=== PATIENT | male | born 1945 | race Caucasian/White ===

== ENCOUNTER → 2019-01-03 09:11 | Outpatient (CLI) | payer MEDICARE, OTHER, SELFPAY ==
--- NOTE | 2019-01-03 | ASPOS_PTH ---
PATIENT: SKY RICKS LOC: [facility] U#:[id number] AGE/SX: 80/M ROOM: RE01/03/[address]: Dr. Armond Martino MD : 1945 BED: DIS: SPEC #: [id number] RECD: 01/03/19 13:06 STATUS: SARA ARELY #: [id number] MOMO: 01/03/19 00:[address]: Armond Martino DEPT: CYTOLOGY RECD BY: Edvin Frank ENTERED: 01/03/19 13:07 SP TYPE: ASP HERE OTHR DR: Dr. Jeet Lugo MD Tissues: A - Neck, NOS B - Neck, NOS Procedures: Surgery Specimen Level IV Cytology Other Fine Needle Asp on Site HEADER OPERATION: FNA submental mass and right neck mass PRE-OP DIAGNOSIS: Submental mass and right neck mass TISSUE SUBMITTED: A - Submental mass FNA - smears and fluid for cell block, B - Right neck mass FNA - smears and fluid for cell block DIAGNOSIS CYTOLOGY A. Fine needle aspiration, submental mass (smears and cell block): Atypical cells are present. See comment. B. Fine needle aspiration, right neck mass (smears and cell block): Negative for malignant cells. See comment. AM:ethan 01/05/19 COMMENT The specimen is evaluated at the time of FNA by Dr. Cm. Immediate Evaluation: A. Negative for malignant cells. B. Negative for malignant cells. A. Atypical degenerating cells are identified in the specimen. A malignancy cannot be entirely excluded. Incisional/excisional biopsy is recommended if clinically indicated. B. The nodule is deep to subcutaneous tissue. The needle aspiration may not represent complete sampling of nodule/lymph node. Clinical correlation is suggested. Immunohistochemistry ([id number]) supports the above diagnosis. This case was reviewed and diagnosis discussed with Dr. Jocelyne Martino on 01/11/19. Case has been reviewed in consultation with Dr. Lara who concurs with the above diagnosis. IDC:SJ CYTOLOGY STUDY Slides are reviewed. CYTOLOGY GROSS A - Received is 0.2 ml of reddish fluid labeled with the patient's name, and designated submental mass. Five imprints and three paps are made from the submitted fluid and the rest is added to CytoLyt for cell block preparation. Submitted for cytology study. B - Received is 0.2 ml of reddish fluid labeled with the patient's name, and designated right neck mass. Four imprints and three paps are made from the submitted fluid and the rest is added to CytoLyt for cell block preparation. Submitted for cytology study. / AM:ethan 01/03/19 TC:? CPT: 03346, 25509 x2, 72859 x2, 80544 x2
--- NOTE | 2019-01-03 | IMM_PTH ---
PATIENT: SKY RICKS LOC: [facility] U#:[id number] AGE/SX: 80/M ROOM: RE01/03/[address]: Dr. Armond Martino MD : 1945 BED: DIS: SPEC #: [id number] RECD: 01/04/19 11:53 STATUS: SARA REShiloh #: [id number] MOMO: 01/03/19 00:[address]: Armond Martino DEPT: IMMUNOHISTOCHEMISTRY RECD BY: Estephania Adikns ENTERED: 01/04/19 11:58 SP TYPE: IMMUNO OTHR DR: Dr. Jeet Lugo MD Tissues: A - Neck, NOS Procedures: BCL-2 (add) CD20 (add) CD79A (add) KI-67 (add) Pankeratin (add) CD45 (initial) PHYSICIAN & INSTITUTION [place] [id number] SPECIMEN INFORMATION: Tissue Source: A - Submental mass, FNA Clinical Info: Submental mass and right neck mass Specimen Number: [id number] CPT code: 42119, 42698 x5 METHODOLOGY: Deparaffinized sections of prefer/formalin-fixed tissue or PAP/DQ stained slides are incubated with monoclonal/polyclonal antibodies/oligonucleotide probes. Localization is made via biotin free immunoperoxidase method. Appropriate controls are performed and reacted as expected. Results on target cell population are indicated in the following table: RESULTS: ANTIBODY / CLONE RESULT Block A CD45 (RP2/18) positive CD79a (11E3) positive, focal BCL-2 (bcl-2/100/D5) positive, rare CD20 (L26) positive, rare Ki-67 (30-9) negative AE1-3 (AE1/AE3/PCK26) negative These tests were developed and their performance characteristics determined by [facility]. They may not have been cleared or approved by the U.S. Food and Drug Administration. The FDA has determined that such clearance or approval is not necessary. INTERPRETATION: A. Submental mass, fine needle aspiration: Atypical degenerating cells present. AM:ethan 01/05/19 Comment: A milgnant neoplasm cannot be ruled out. Clinical correlation is suggested. Case has been reviewed in consultation with Dr. Lara who concurs with the above diagnosis. IDC:[email or web address]
== END ==
PROVIDERS: Family Provider Internal Medicine; PCP Internal Medicine; Referring Provider Otolaryngology; Visit Provider Otolaryngology
DX: R22.1 Localized swelling, mass and lump, neck (principal); R22.0 Localized swelling, mass and lump, head
CPT/HCPCS: 10021; 88161; 88305; 88341; 88342

== ENCOUNTER → 2019-02-07 14:26 | Outpatient (CLI) | payer MEDICARE, OTHER, SELFPAY | PROVIDERS: Family Provider Internal Medicine; PCP Internal Medicine; Referring Provider Otolaryngology; Visit Provider Otolaryngology | DX: Z01.818 Encounter for other preprocedural examination (principal) ==

== ENCOUNTER → 2019-02-14 07:55 | Outpatient (CLI) | payer MEDICARE, OTHER, SELFPAY ==
--- NOTE | 2019-02-14 08:01 | CT_ITS ---
STUDY: CT SOFT TISSUE NECK WITH CONTRAST REASON FOR EXAM: Male, 73 years old. Right-sided neck swelling, midline under the jaw radiating down the right side of the neck. RADIATION DOSAGE (If Supplied By Facility): CTDIvol = ( 21.70 ) mGy, DLP = ( 634.04 ) mGycm TECHNIQUE: The patient was scanned in a multi-detector CT scanner. High resolution transaxial imaging was performed following intravenous administration of 75CC IV Isovue 300. Sagittal and coronal images were reconstructed. Individualized dose optimization techniques were used for this CT. COMPARISON: None. FINDINGS: Superior mediastinum: A few lymph nodes, prevascular chain, the largest with a short axis dimension of 9 mm. A few tiny lymph nodes in the paratracheal superior mediastinum. A single mildly enlarged lymph node right paratracheal at the level of the thoracic inlet, short axis IX.1 mm. Apical lungs: Clear. Apical thoracic body wall soft tissues and osseous structures: No acute process. Cervical spine: Mild spondylosis without stenosis. Craniofacial osseous structures: No acute process. Mastoid air cells and middle ear cavities: Clear. Paranasal sinuses: Mucous retention cyst at the base of the right maxillary sinus with mucoperiosteal thickening. Pharyngeal and laryngeal soft tissues: No acute process. Thyroid, submandibular glands and parotid glands: No acute process. Internal Sales Engineer space: No acute process. Supraclavicular and cervical soft tissues: On the right, numerous shotty cervical chain lymph nodes. A few are abnormally enlarged, posterior cervical 10 x 13 mm. Submandibular 12 x 9 mm. A right-sided submental lymph node measuring 8 mm is centrally hypoattenuating with rim enhancement, consistent with acute inflammation. A midline submental lymph node measures 10 mm. There are multiple small supraclavicular lymph nodes. On the left, more prominent supraclavicular lymphadenopathy. Largest lymph node the level of the thyroid about 13 mm. Posterior to the sternocleidomastoid muscle, matted accumulation of closely approximate lymph nodes, several of which are centrally low density, the largest measuring 21 mm, immediately adjacent lymph nodes measuring 16mm, 16 mm, 14 mm, 15 mm. Left submandibular lymph nodes 6 mm, 10 mm. Left anterior cervical lymph nodes 17 mm, 14 mm. Left jugulodigastric lymph node 14 mm. A few additional very small shotty cervical lymph nodes, none in the posterior cervical chain. CT/Soft Tissue Neck WITH Contrast IMPRESSION: Lymphadenopathy, bilateral cervical, supraclavicular, most severe on the left. Multiple enlarged lymph nodes are centrally low density with rim enhancement, suggesting central necrosis, active inflammation. Chronic paranasal sinus disease. Electronically Signed: Kee Granado MD at 10:20 EDT Tel , Service support ,
[2019-02-14 08:30] LABS: CREATININE FINGERSTICK 1.1 mg/dL (0.70-1.30); EGFR FINGERSTICK > 60.0000 mL/min (>60)
== END ==
PROVIDERS: Family Provider Internal Medicine; PCP Internal Medicine; Referring Provider Otolaryngology; Visit Provider Otolaryngology
DX: R22.1 Localized swelling, mass and lump, neck (principal)
CPT/HCPCS: 70491; Q9967

== ENCOUNTER 2019-03-14 13:57 | Day surgery (SDC) | payer MEDICARE, OTHER, SELFPAY ==
--- NOTE | 2019-03-09 16:31 | EKG12_ITS ---
Test Reason : PRE OP Blood Pressure : / mmHG Vent. Rate : 055 BPM Atrial Rate : 055 BPM P-R Int : 188 ms QRS Dur : 090 ms QT Int : 432 ms P-R-T Axes : 045 027 049 degrees QTc Int : 413 ms Sinus bradycardia with marked sinus arrhythmia Otherwise normal ECG Confirmed by VENKATESH LLAMAS, OSWALDO ([id number]), managing editor NADIRA RICKS ([id number]) on 03/14/2019 3:02:47 PM Referred By: Armond Martino Confirmed By:OSWALDO RIDDLE MD
[2019-03-09 17:45] LABS: Absolute Lymphocyte Count 1.28 X10^3/ul (0.83-4.51); Basophil# 0.06 X10^3/uL; Eosinophil# 0.43 X10^3/uL; Eosinophils% 6.9 % (0-5); Hematocrit 38.5 % (40-54); Hemoglobin 12.5 g/dl (13.0-16.5); Lymphocyte # 1.28 X10^3/ul (4.0); Lymphocyte % 20.5 % (19-41); Mean Corp Hgb Conc 32.5 g/gl (32-36); Mean Corpuscular Hgb 25.1 pg (27.0-32.0); Mean Corpuscular Volume 77.3 fL (80-94); Mean Platelet Vol. 11.3 fl (6.2-12.0); Monocyte# 0.49 X10^3/uL; Monocyte% 7.8 % (0-10); Neutrophil # 3.98 X10^3/uL (2.7-7.7); Neutrophil % 63.6 % (47-70); Platelet Count 218 K/mm3 (150-450); RBC Distribution Width CV 15.2 % (11.6-14.6); RBC Distribution Width SD 42.3 fl (35.1-43.9); Red Blood Count 4.98 M/mm3 (4.6-6.2); White Blood Count 6.3 K/mm3 (4.4-11.0)
[2019-03-09 17:57] LABS: POSITIVE COUNT NO; POSITIVE DIFFERENTIAL NO; POSITIVE MORPHOLOGY NO
[2019-03-09 18:18] LABS: Anion Gap 6 (5-15); BUN 38 mg/dL (7-18); BUN/Creat Ratio 31.4 RATIO (10-20); Calcium,Total 9.1 mg/dL (8.5-10.1); Chloride 108 mmol/L (98-107); Creatinine, Serum 1.21 mg/dL (0.70-1.30); EST Glomerular Filtration Rate 63 mL/min (>60); Est Glom Filt Rate - Afr Amer 76 mL/min (>60); Glucose 94 mg/dL (74-106); Potassium 4.4 mmol/L (3.5-5.1); Sodium Level 143 mmol/L (136-145)
[2019-03-14] VITALS (7 sets, daily range): BP systolic 142–153; BP diastolic 66–77; PULSE 63–68; RESP 14–18; TEMP 36.7–37; O2SAT 93–98; BMI 30.5
--- NOTE | 2019-03-14 | IMM_PTH ---
PAT[place]: SKY [place]ICKS [place] [facility] [id number] AGE/SX: 73/M ROOM: RE03/14/[address]: Dr. Armond Martino MD : 1945 BED: DIS: 03/14/2019 SPEC #: [id number] RECD: 03/16/19 14:02 STATUS: SARA REShiloh #: [id number] MOMO: 03/14/19 00:[address]: Armond Martino DEPT: IMMUNOHISTOCHEMISTRY RECD BY: Estephania Adkins ENTERED: 03/16/19 14:05 SP TYPE: IMMUNO OTHR DR: Dr. Jeet Lugo MD Tissues: Lymph node of neck, NOS Procedures: BCL-2 (add) BCL-6 (add) CD10 (add) CD138 (add) CD15 (add) CD20 (add) CD23 (add) CD3 (add) CD30 (add) CD43 (add) CD45 (add) CD5 (add) CD79A (add) CYCLIN (add) KAPPA (add) KI-67 (add) LAMBDA (add) Vimentin (add) MUM1 (add) C-MYC (add) Pankeratin (initial) PHYSICIAN & [place] [id number] SPECIMEN INFORMATION: Tissue Source: Lymph node left neck Clinical Info: Mass left neck Specimen Number: [id number] CPT code: 26280, 72915 x20 METHODOLOGY: Deparaffinized sections of prefer/formalin-fixed tissue or PAP/DQ stained slides are incubated with monoclonal/polyclonal antibodies/oligonucleotide probes. Localization is made via biotin free immunoperoxidase method. Appropriate controls are performed and reacted as expected. Results on target cell population are indicated in the following table: RESULTS: ANTIBODY / CLONE RESULT AE1-3 (AE1/AE3/PCK26) negative CD3 (PS1) positive CD5 (SP10) negative CD10 (56C6) positive CD15 (MMA) negative CD20 (L26) positive CD23 (1B12) negative CD30 (James-H2) negative CD43 (L60) positive CD45 (RP2/18) positive CD79a (11E3) positive CD138 (B-A38) negative BCL-2 (bcl-2/100/D5) positive BCL-6 (VM720P/A8) positive Cyclin D1/BCL-1 (SP4) negative MUM1 (MRQ-43) positive C-MYC (Y69) negative [place] (polyclonal) negative Lambda (polyclonal) negative Vimentin (V9) positive Ki-67 (30-9) positive, moderate These tests were developed and their performance characteristics determined by [facility]. They may not have been cleared or approved by the U.S. Food and Drug Administration. The FDA has determined that such clearance or approval is not necessary. INTERPRETATION: Lymph node left neck, excision: Large B-cell lymphoma. AM:ethan 03/22/19 Comment: A germinal center origin is not favored. Case has been reviewed in consultation with Dr. Lara who concurs with the above diagnosis. IDC:SJ
[2019-03-14 15:05] LABS: Bedside Glucose 148 mg/dL (70-110)
--- NOTE | 2019-03-14 16:05 | LYMN_PTH ---
PATIENT: SKY RICKS [place] [facility] [place][id number] AGE/SX: 73/M ROOM: RE03/14/[address]: Dr. Armond Martino MD : 1945 BED: DIS: 03/14/2019 SPEC #: [id number] RECD: 03/14/19 17:28 STATUS: SARA ARELY #: [id number] MOMO: 03/14/19 16:[address]: Armond Martino DEPT: SURGICAL PATHOLOGY RECD BY: Arnaldo Garcia ENTERED: 03/15/19 09:26 SP TYPE: LYMPH NODE OTHR DR: Dr. Jeet Lugo MD Tissues: LYMPH NODE BIOPSY Procedures: Surgery Specimen Level IV HEADER OPERATION: Excision, neck mass, left PRE-OP DIAGNOSIS: Mass left neck TISSUE SUBMITTED: Lymph node left neck MICROSCOPIC DIAGNOSIS Mass of left neck, excisional biopsy: Large B-cell lymphoma. See comment. AM:ethan 03/22/19 COMMENT Flow cytometry analysis reveals a CD10 positive clonal B-cell population. The complete flow cytometry report is viewable in patient's EMR. Immunohistochemistry ([id number]) supports the above diagnosis. MUM1 positivity does not favor a germinal center origin. Clinical correlation is suggested. Reference is made to the patient's fine needle aspiration ([id number]) in which atypical cells was identified. Case has been reviewed in consultation with Dr. Lara who concurs with the above diagnosis. IDC:SJ MICROSCOPIC DESCRIPTION Slides are reviewed. GROSS DESCRIPTION Received in fixative is one container labeled with the patient's name and designated lymph node left neck. The specimen consists of multiple irregular fragments of pink-gomes soft tissue that in aggregate measure 3 x 2.5 x 0.2 cm. 8Th Grade Teacher portions are submitted for flow cytometry analysis. 8Th Grade Teacher touch preps are prepared. The remainder of the specimen is submitted in its entirety in one cassette. / AM:ethan 03/15/19 TC:0 CPT: 03423 ADDENDUM ADDENDUM ADDENDUM ADDENDUM ADDENDUM ADDENDUM ADDENDUM ADDENDUM ADDENDUM ADDENDUM ADDENDUM 05/30/2019 09:49 ADDENDUM 05/30/2019 09:49 ADDENDUM 05/30/2019 09:49 ADDENDUM 05/30/2019 09:49 ADDENDUM 05/30/2019 09:49 This addendum is added to incorporate an outside pathology consultation report. The case was examined at [facility] (#[id number]) and the following diagnosis was rendered. Mass, left neck, excisional biopsy: Diffuse large B-cell lymphoma, not otherwise specified (40%). 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 Please see complete above mentioned consultation report in EMR
[2019-03-14] MEDS: Bacitracin 500 UNITS/GM PACKET (17:14)
--- NOTE | 2019-03-14 17:45 | DCINST_ITS ---
You will use the following diet at home:: Regular Discharge Activity: Return to Normal Activity, No Restrictions Additional Activity Instructions:: Leave dressing in place. Call [phone] to make an appointment to be seen tomorrow afternoon. Dr. Martino will remove the dressing tomorrow. Allergies/Adverse Reactions: Allergies No Known Allergies Allergy (Verified 03/09/19 14:15) Medications to take at Discharge Atenolol [Tenormin (beta Mathew)] 25 mg PO DAILY 02/07/19 Glipizide [Glipizide Xl] 5 mg PO DAILY 02/07/19 NIFEdipine [Procardia XL] 90 mg PO DAILY 02/07/19 RX: Aspirin E.C. [Ecotrin] 81 mg PO DAILY@0800 02/07/19 Terazosin HCl [Hytrin] 5 mg PO DAILY 02/07/19 Multivitamin with Minerals [Multiple Vitamin] 1 each PO DAILY 03/09/19 Primary Care Physician: Jeet Lugo MD [Primary Care Provider] - Test Results: Test results from this visit will be discussed in further detail at your follow- up appointment, if applicable.
--- NOTE | 2019-03-14 17:45 | PCM.OPRPT ---
Report of Operation Date of Procedure: 03/14/19 Pre-Operative Diagnosis: Left neck mass Post-Operative Diagnosis: same Surgery/Procedure Performed:: Excision left neck mass Description of Surgical Findings:: Lymph node with pus Type of Anesthesia:: General Anesthesiologist: Sascha Melvin Specimen's removed: neck mass Drains: salbador Estimated Blood Loss (mL): minimal Description of Procedure: The patient was taken to the OR on 03/14/19. He was placed in the supine position on the OR table. He was given sufficient general anesthesia. The head of bed was elevated 30 degrees. The left neck was prepped and draped steriley. I injected 1% lidocaine with epinephrine into the skin overlying the intended incision. The incision was made with a 15 blade. Hemostasis was achieved with bipolar cautery. I sharply dissected to the platysma. The platysma was then incised with a 15 blade. I then sharply dissected onto the lateral surface of the mass. This appeared to be a large lymph node. I established a plane on the node and the fascia was swept superiorly. I then bluntly dissected posterior and deep to the node. While bluntly dissecting anteriorly, pus extruded from the body of the node. This was suctioned from the neck. Next, I used sharp dissection to deliver the node from the neck. The tissue was very friable and the node broke into pieces during dissection. A small artery was ligated with 3-0 silk. Once the node was removed, I irrigated the wound with saline. I inspected the wound for further bleeding and there was none. A salbador was placed in the wound. The platysma was closed with interrupted 4-0 vicryl. The subcutaneous tissue was closed with interrupted 4-0 vicryl. The skin was closed with interrupted 6-0 nylon. The drain was sewn to the skin with 6-0 nylon. Antibiotic ointment and a pressure dressing were applied. He was then awoken and brought to the recovery room in stable condition. Blood loss minimal, replacement none. Sponge, needle and instrument count were correct at the end of the procedure.
[2019-03-14 18:11] LABS: Bedside Glucose 124 mg/dL (70-110)
[2019-03-14] MEDS: traMADol 50 MG Tablet 100 MG PO (18:44)
== END 2019-03-14 19:33 | disposition home or self-care (01) ==
LOC: SDC 13:57 → AC 14:14
PROVIDERS: Family Provider Internal Medicine; PCP Internal Medicine; Referring Provider Otolaryngology; Visit Provider Otolaryngology
PROC: (CPT 21556; principal; 2019-03-14 15:50)
DX: C83.31 Diffuse large B-cell lymphoma, lymph nodes of head, face, and neck (principal); I10 Essential (primary) hypertension; E11.9 Type 2 diabetes mellitus without complications; Z79.84 Long term (current) use of oral hypoglycemic drugs; Z79.899 Other long term (current) drug therapy; Z77.22 Contact with and (suspected) exposure to environmental tobacco smoke (acute) (chronic)
CPT/HCPCS: 00300; 21556; 36415; 80048; 82962; 85025; 88305; 88341; 88342; 93005; J7120; J2405

== ENCOUNTER → 2019-04-04 06:53 | Outpatient (CLI) | payer MEDICARE, OTHER, SELFPAY ==
[2019-03-14 14:42] VITALS: BMI 30.5
--- NOTE | 2019-04-04 07:30 | PET_ITS ---
EXAMINATION: FDG PET CT INDICATIONS: A 73-year-old male with reported history of lymphoma presenting for initial staging examination. COMPARISON EXAMINATION: CT of the neck report dated 02/14/19. INDEX LESION SIZE LUGANO SCORE SUV INTERPRETATION Bilateral-lateral neck, right supraclavicular region, left anterior neck, bilateral submental regions 13.2 mm x 20.1 mm largest (frame 275) 5 6.4 (max) Fulfills quantitative criteria for viable neoplasm Posterior subcarinal mediastinum 25.2 mm x 13.7 mm (frame 219) 5 6.3 Fulfills quantitative criteria for viable neoplasm Abdominal retroperitoneum and mesentery, right inguinal region 30.6 mm x 61.1 mm largest (frame 135) 5 10.2 (max) Fulfills quantitative criteria for viable neoplasm TECHNIQUE: Following the intravenous administration of 16.54 mCi of F-18 deoxyglucose via the left antecubital fossa, multiplanar image acquisitions of the neck, chest, abdomen and pelvis to level of mid thigh, obtained at one hour post radiopharmaceutical administration contemporaneously interpreted with the current CT of the neck, chest, abdomen and pelvis to level of mid thigh, dated 04/04/[address] of the neck report dated 02/14/19 reveal: SERUM GLUCOSE LEVEL: 129 mg/dl. HEIGHT: 69 inches. WEIGHT: 206 lbs. FINDINGS: 1. Increased glucose metabolism is multifocally apparent in the right lateral neck involving level II A-B, V A, the right submental region midline and left submental region involving level I A and I B, the left lateral neck involving level III, left anterior neck involving level and right supraclavicular region. The calculated maximum standard uptake value is 6.4. The Lugano-Deauville score is 5. The maximal axial diameter of the largest individual metabolic, morphologic abnormality on review of CT of the neck dated 04/04/19 is 13.2 mm (transverse) x 20.1 mm (AP). 2. Enhanced FDG concentration is noted in the subcarinal posterior mediastinum, periesophageal in location, generating a calculated maximum standard uptake value of 6.3. The Lugano-Deauville score is 5. The maximal axial diameter of the corresponding metabolic, morphologic abnormality on review of CT of the chest dated 04/04/19 is 25.2 mm (transverse) x 13.7 mm (AP). 3. Multifocal increased fluorine-labeled glucose uptake is defined in the upper-lower abdominal retroperitoneum and mesentery, as well as a single nodular focus in the right inguinal region generating a calculated maximum standard uptake value of 10.2. The Lugano-Deauville score is 5. The largest individual metabolic, morphologic abnormality on review of CT of the abdomen and pelvis dated 04/04/19 is 38.6 mm (transverse) x 61.1 mm (AP). 4. Normal physiologic distribution of the radiopharmaceutical is apparent in the hepatic (3.3) and splenic parenchyma, both renal units, bladder and visualized intestinal tract. There is uniform distribution of the radiopharmaceutical concentration defined in the visualized cerebellar hemispheres and cerebral cortical structures.? Diffuse intestinal tract activity is noted throughout all four quadrants of the abdominal-pelvic retroperitoneum, mesentery consistent with normal physiologic distribution of the radiopharmaceutical. Pertinent CT findings are as follows. CHEST: Atherosclerotic calcification is defined in the thoracic aorta without evidence of dilatation, aneurysm formation. Coronary arterial calcification is observed. Bilateral axillary soft tissue densities with fatty hilus formation are non-glucose avid. Atherosclerotic calcification is defined in the thoracic aorta without evidence of dilatation, aneurysm formation. Coronary arterial calcification is observed. A noncalcified parenchymal density noted in the left lower lateral hemithorax pulmonary parenchyma reveals no evidence of quantitatively significant increased glucose metabolism. ABDOMEN AND PELVIS: The gallbladder is surgically absent. Atherosclerotic calcification is defined in the abdominal aorta without evidence of dilatation, aneurysm formation. Pelvic arterial calcification is observed. Colonic diverticulosis is defined. Peripelvic cyst formation is defined in the left kidney. Additional right and visualized left inguinal soft tissue densities are ametabolic. SKELETAL: Degenerative changes defined in the cervical, thoracic and lumbar spine demonstrate no evidence for glucose hypermetabolism. PET/PET/CT Tumor Base -Thigh Init IMPRESSION: 1. Increased glucose metabolism manifest in the bilateral submental regions, right-left lateral neck, the left anterior neck and right supraclavicular region fulfills quantitative criteria for viable neoplasm. (Ann-Marie et al, Journal of Clinical Oncology 32:3059, 2014). 2. The single posterior mediastinal hypermetabolic focus fulfills quantitative criteria for viable neoplasm. 3. Neoplastic infiltration is multifocally apparent in the abdominal retroperitoneum and mesentery, right inguinal regions. Electronic Signature Kee Joe D.O. Electronically Signed: Kee Joe DO at 10:44 EDT Tel , Service support ,
== END ==
PROVIDERS: Family Provider Internal Medicine; PCP Internal Medicine; Referring Provider Internal Medicine Hematology & Oncology; Visit Provider Internal Medicine Hematology & Oncology
DX: C83.38 Diffuse large B-cell lymphoma, lymph nodes of multiple sites (principal)
CPT/HCPCS: 78815; A9552

== ENCOUNTER 2019-04-11 09:54 | Day surgery (SDC) | payer MEDICARE, OTHER, SELFPAY ==
[2019-03-14 14:42] VITALS: BMI 30.5
--- NOTE | 2019-04-10 18:20 | PCM.HP.BLA ---
History and Physical Date of Admission: 04/11/19 Donell Palomino 1945 ? ? REFERRING PHYSICIAN: All Domínguez DO ? CHIEF COMPLAINT: PORT PLACEMENT ? HPI: The patient is a 73 year old male is referred by his oncologist for request to place portacath. Patient has been newly diagnosed with lymphoma. Had noted bilateral cervical adenopathy and underwent biopsy by Dr. Martino. Was found to be lymphoma and he was referred to Dr. Domínguez. Denies history of clavicular or rib fractures. Denies history of deep venous thromboses. Denies previous shoulder injuries/fractures. Denies previous central line placement. ? ? PAST MEDICAL HISTORY ? BACKACHE NOS 03/09/2008 ? Diverticulitis of colon (without mention of hemorrhage)(562.11) ? ? OBESITY NOS 08/11/2007 ? Obstruction of bile duct ? ? Other and unspecified hyperlipidemia ? ? SLEEP APNEA NOS 01/20/2008 ? not tested ? Type II or unspecified type diabetes mellitus without mention of complication, uncontrolled ? ? Unspecified essential hypertension ? ? PAST SURGICAL HISTORY ? COLONOSCOP W/ OR W/O BRS SPEC ? 05/18/2006 ? COLONOSCOP W/ OR W/O BRSH SPEC ? 11/05/2016 ? EXCISION TISSUE Left 03/14/2019? Left neck mass excised ? LAPAROSCOPIC CHOLEYCYSTECTOMY ? 12/08/1999 ? ? Current Outpatient Medications: NIFEdipine XL (ADALAT CC,PROCARDIA XL) 90 mg 24 hr tablet TAKE ONE TABLET BY MOUTH ONCE DAILY simvastatin (ZOCOR) 10 mg tablet Take 1 tablet by mouth daily at bedtime. atenolol (TENORMIN) 25 mg tablet Take 1 tablet by mouth once daily. terazosin (HYTRIN) 2 mg capsule Take 1 capsule by mouth once daily. losartan-hydrochlorothiazide (HYZAAR) 100-25 mg per tablet Take 1 tablet by mouth once daily. metFORMIN (GLUCOPHAGE) 1,000 mg tablet Take 1 tablet by mouth twice daily. glipiZIDE (GLUCOTROL XL) 5 mg 24 hr tablet Take 1 tablet by mouth daily before lunch. blood sugar diagnostic (ONE TOUCH ULTRA TEST) test strip TEST BLOOD SUGARS ONCE DAILY. 250.00 therapeutic multivitamin ORAL tablet Take one(1) tablet daily. ? ? ALLERGIES: Patient has no known allergies. ? 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 FAMILY HISTORY ? None Mother? age 89 ? Genitourinary (), juan's lung Father? obstructive uropathy, COPD, heart disease ? ? Diabetes Brother ? ? ? REVIEW OF SYSTEMS: General: The patient denies fatigue, denies weight loss, denies weight gain, denies feeling hot, and denies feelings of cold. Eyes: The patient denies glaucoma, denies eye injury/surgery, wears glasses or contacts. Ear/Nose/Throat: The patient denies allergies, denies hayfever, denies ear infections, and denies bloody noses. Cardiovascular: The patient denies chest pain, denies heart disease, NOTES high blood pressure,denies cardiac stent, denies prior heart attack, denies irregular heart beat, denies high cholesterol, denies poor circulation, denies heart failure, other cardiac issues, denies claudication, denies cold feet, denies peripheral arterial stent. Respiratory: The patient denies tuberculosis, denies pneumonia, denies frequent cough, denies pulmonary embolism, denies shortness of breath, and denies coughing up blood. Gastrointestinal: The patient denies difficulty swallowing, denies acid reflux, denies ulcers, denies vomiting, denies jaundice/hepatitis, denies gallbladder problems, denies black or tarry stools, denies hemorrhoids, denies bleeding from rectum, denies diverticulitis, denies constipation, denies diarrhea, denies loss of stool control, and denies hernias. Kidney/Bladder: The patient denies kidney stones, denies urine infections, and denies bloody urine. Skin: The patient denies a history of skin cancer, denies bleeding/changing moles, and denies a history of skin rash. Neurologic: The patient denies a history of epilepsy/convulsions, denies headaches, denies head/spinal injuries, and denies stroke/TIA. Psychiatric: The patient denies psychiatric medications, denies depression, and denies voices, denies substance abuse. Endocrine: The patient denies thyroid disorders, denies diabetes, and denies hormonal problems. Hematologic: The patient denies a history of bruising, denies bleeding, and denies anemia, denies blood clots. Infections: The patient NOTES a history of measles and mumps, denies rheumatic fever, and denies sexually transmitted diseases. Musculoskeletal: The patient denies back pain/injury, denies back problems, denies sciatica, denies knee/foot trouble, denies arthritis, or denies gout. ? PHYSICAL EXAMINATION: General: The patient is 73 year old male, well nourished, well hydrated in no acute distress. The patient is oriented to time, place, and person. VITALS: Blood pressure 140/70, pulse 80, weight 93 kg (205 lb). Ht: 5'9 Body mass index is 31.17 kg/m?. Head ? Normocephalic. EOM intact with sclera clear and no icterus noted. Wearing glasses. Mouth with mucus membranes moist. Neck - supple with no jugular venous distention noted. Trachea is midline. No carotid bruits noted. Lungs ? clear to auscultation. Normal breath sounds. No rales/rhonchi/wheezing noted. No labored breathing noted, such as retractions. No cough heard. Heart ? normal S1 and S2 auscultated. No rubs/clicks/murmurs noted. Regular rate. Abdomen ? soft and benign. Normal bowel sounds. Extremities ? no calf tenderness noted. No pitting edema noted. Skin ? normal skin integrity. Lymph ? no cervical adenopathy detected, no supraclavicular adenopathy detected Neurological ? gait normal, no focal deficits. Psych ? calm and appropriate ? ? IMPRESSION: need for placement of portacath, newly diagnosed lymphoma ? PLAN: I have discussed the above with the patient. I have offered placement of portacath I have explained the procedure to the patient. I have counseled the patient as to the risks of the procedure, including but not limited to: infection, bleeding, injury to any blood vessels/nerves, injury to the lungs such as hemothorax/pneumothorax, thrombosis of port, deep venous thromboses, infection of port, non functioning of port, wound infections, complications of anesthesia, etc. ? the patient understands. The patient wishes to proceed. I have answered all questions to the patient?s satisfaction and the patient has no further questions.
[2019-04-11 10:41] VITALS: BP 143/76; PULSE 63; RESP 16; TEMP 36.4; O2SAT 98; BMI 30.4
[2019-04-11 11:05] LABS: Bedside Glucose 155 mg/dL (70-110)
[2019-04-11] MEDS: Cefazolin 2 GM in 0.9% Normal Saline 100 ML IV (11:19)
--- NOTE | 2019-04-11 11:21 | DCINST_ITS ---
Discharge Diet: No Restrictions Discharge Activity: Return to Normal Activity, May not drive while taking narcotic pain medications. Call your doctor if your incision/area has: Continuous Slow Oozing, Foul Smelling Discharge Call your doctor if you observe: Fever of 101 or Higher Additional Dressing/Incision Instructions:: Leave dressings in place. May get wet in shower. Do not soak - no tub baths/swimming Additional Instructions: Recommended pain medication regimen: may take 600 mg ibuprofen, then in three hours take 650 mg acetaminophen, then in three hours take 600 mg ibuprofen, then in three hours take 650 mg acetaminophen, and so, as per needed. Take narcotic pain medications for breakthrough pain and at night May apply ice packs to the area for comfort as tolerated also Allergies/Adverse Reactions: Allergies No Known Allergies Allergy (Verified 04/11/19 10:39) Medications to take at Discharge Aspirin E.C. [Ecotrin] 81 mg PO DAILY@0800 02/07/19 Atenolol [Tenormin (beta Mathew)] 25 mg PO DAILY 02/07/19 Glipizide [Glipizide Xl] 5 mg PO DAILY 02/07/19 NIFEdipine [Procardia XL] 90 mg PO DAILY 02/07/19 Terazosin HCl [Hytrin] 5 mg PO DAILY 02/07/19 Multivitamin with Minerals [Multiple Vitamin] 1 each PO DAILY 03/09/19 Hydrocodone/Acetaminophen [[place] 5-325 Tablet] 1 ea PO Q8 PRN #6 tab 04/11/19 The following prescriptions were given: Hydrocodone/Acetaminophen [[place] 5-325 Tablet] 1 ea PO Q8 PRN #6 tab PRN Reason: Pain Prescription Printed Primary Care Physician: Jeet Lugo MD [Primary Care Provider] - Test Results: Test results from this visit will be discussed in further detail at your follow- up appointment, if applicable.
--- NOTE | 2019-04-11 12:13 | OP.PCM_ITS ---
Report of Operation Date of Procedure: 04/11/19 Pre-Operative Diagnosis: B cell lymphoma, need for IV acess for chemotherapy Post-Operative Diagnosis: same Surgery/Procedure Performed:: placement of permanent indwelling tunnelled catheter in the left subclavian vein with subcutaneous port Description of Surgical Findings:: normal left subclavian vein anatomy to SVC Type of Anesthesia:: Local MAC Anesthesiologist: Ricardo Woo Specimen's removed: none Estimated Blood Loss (mL): < 5 ml Fluids Replaced: 400 cc RL Description of Procedure: After informed consent was given, the patient was brought to the operating room. Appropriate time out protocol was follwed. He was then placed in the supine position. He was then given IV conscious sedation for anesthesia. The patient?s upper chest and neck were then prepped with a surgical skin preparation and sterile surgical drapes were placed. After proper landmarks were ascertained, the skin at the upper left chest area was then infiltrated with 1% xylocaine with epinephrine. A needle trocar was then inserted into the left subclavian vein and there was good aspiration of venous blood. A wire was then threaded into the needle trocar and this was visualized under fluoroscopy to ensure that the wire was in the left subclavian vein. Once this was done, then the needle trocar was removed. A small skin sher was made with an 11 blade knife at the wire entrance site. The dilator with the introducer sheath attached was then placed over the wire into the left subclavian vein via the Seldinger technique and this was visualized under fluoroscopy. The dilator and sheath were in proper position as visualized by fluoroscopy. The wire and dilator were then removed. The catheter was then threaded into the introducer sheath and was positioned with its tip at the junction of the superior vena cava and the right atrium as visualized under fluoroscopy. The catheter was flushed with a heparin saline mixture prior to placement. A subcutaneous pocket was then created caudad to the catheter insertion site. A transverse skin incision was made after the skin and subcutaneous tissues were infiltrated with local anesthetic. Blunt dissection was then used to create a space large enough for placement of the subcutaneous port. Hemostasis was carefully controlled with electrocautery. The port was sutured to the subcutaneous fascia using vicryl suture at three sites. The catheter was then tunneled into the subcutaneous pocket. The excess catheter was transected. The catheter was then attached to the subcutaneous port using labor economics teacher?s guidelines. The port was then placed in the subcutaneous pocket and the sutures were ligated. The subdermal incisional sites were reapproximated with interrupted vicryl suture. The skin was reapproximated with monocryl suture in a subcuticular fashion. The port was the accessed, there was good aspiration of blood, it was then flushed with heparinized saline. Cavilon and steristrips were used for reinforcement of the skin closure and a sterile opsite dressing was applied. The patient was brought to the Recovery Room in stable condition. Grafts/Implants Used: PowerPort Lot#[id number], exp 2019-09/10 - Complications none noted - Admit VTE Documentation VTE Present on Admission: Yes VTE Mechan Device Prophylaxis: SCD's
[2019-04-11 12:22] VITALS: BP 129/65; BP 143/76; PULSE 62; RESP 16; TEMP 36.2; O2SAT 96
[2019-04-11 12:25] VITALS: BP 130/67; BP 143/76; PULSE 61; RESP 16; O2SAT 96
[2019-04-11 12:30] VITALS: BP 127/65; BP 143/76; PULSE 61; RESP 16; O2SAT 96
[2019-04-11 12:32] VITALS: BP 131/64; BP 143/76; PULSE 61; RESP 16; O2SAT 96
--- NOTE | 2019-04-11 12:35 | RAD_ITS ---
STUDY: X-RAY CHEST REASON FOR EXAM: Male, 74 years old. Vascular port insertion. TECHNIQUE: Single AP portable view of the chest. COMPARISON: None. FINDINGS: A left-sided portacatheter has been inserted. The tip is in the proximal portion of the superior vena cava. The lungs are clear and expanded. There is no demonstrated pleural abnormality. Normal size heart. Normal mediastinum and marti. Normal visualized pulmonary arteries. Normal visualized aortic arch and descending thoracic aorta. There are diffuse degenerative changes of the visualized thoracic spine. Normal visualized ribs, clavicles, and shoulders. There is no demonstrated abnormality of the visualized soft tissue structures of the upper abdomen. RAD/CXR for Line Placement IMPRESSION: The tip of the left portacatheter is in the proximal portion of the superior vena cava. Electronically Signed: Refugio Boogie, at 12:54 EDT , Service support ,
[2019-04-11 13:10] VITALS: BP 143/76
== END 2019-04-11 13:56 | disposition home or self-care (01) ==
LOC: SDC 09:56 → AC 09:58
PROVIDERS: Family Provider Internal Medicine; PCP Internal Medicine; Referring Provider Surgery; Visit Provider Surgery
PROC: (CPT 36561; principal; 2019-04-11 11:25)
DX: Z45.2 Encounter for adjustment and management of vascular access device (principal); C85.10 Unspecified B-cell lymphoma, unspecified site; I10 Essential (primary) hypertension; E78.5 Hyperlipidemia, unspecified; E66.9 Obesity, unspecified; Z68.31 Body mass index [BMI] 31.0-31.9, adult; E11.65 Type 2 diabetes mellitus with hyperglycemia; Z79.84 Long term (current) use of oral hypoglycemic drugs; Z79.82 Long term (current) use of aspirin; Z79.899 Other long term (current) drug therapy
CPT/HCPCS: 36561; 77001; 71045; 82962; J7120; C1788

== ENCOUNTER 2019-05-28 06:27 | Emergency (ER) | payer MEDICARE, OTHER, SELFPAY ==
[2019-05-28 06:27] VITALS: BP 181/73; PULSE 64; RESP 18; TEMP 36.8; O2SAT 97; BMI 30.2
--- NOTE | 2019-05-28 06:45 | CT_ITS ---
STUDY: CT ABDOMEN AND PELVIS WITH CONTRAST REASON FOR EXAM: Male, 74 years old. Abdominal pain. Elevated white blood count. B-cell lymphoma. RADIATION DOSAGE (If Supplied By Facility): CTDIvol = ( 19.28 ) mGy, DLP = ( 2106.40 ) mGycm TECHNIQUE: Transaxial images were obtained from the dome of the diaphragm to the symphysis pubis with oral contrast. 100mL IV/Oral Isovue 300 was administered. Sagittal and coronal images were reconstructed. Individualized dose optimization techniques were used for this CT. COMPARISON: PET CT April 04, 2019 FINDINGS: The visualized lung bases are unremarkable. The visualized portions of the heart are within normal limits. There is pneumobilia. There are surgical clips in the gallbladder fossa consistent with a prior cholecystectomy. Normal spleen. Normal pancreas. Normal bilateral adrenal glands. There are parapelvic cysts of the kidneys.. Normal visualized stomach. There is wall thickening of the duodenum with duodenitis versus ulcer disease. There is mild fluid in loops of small bowel. There are multiple colonic diverticula consistent with diverticulosis. The appendix is visualized and appears normal. Normal abdominal aorta. Normal inferior vena cava. There is improvement of retroperitoneal and mesenteric lymphadenopathy. There is 1.8 cm interaortocaval node. There is 1.8 cm mesenteric lymph node Normal urinary bladder. There is no free fluid in the abdomen or pelvis Normal abdominal wall. There is degenerative change of the spine. CT/Abdomen/Pelvis WITH Contrast IMPRESSION: Improvement of retroperitoneal and mesenteric lymphadenopathy. Colonic diverticulosis. No obstruction. Wall thickening of the duodenum with duodenitis versus ulcer disease. Mild small bowel distention suggesting ileus or enteritis. No obstruction. Electronically Signed: Aaron Daley MD at 9:27 EDT , Service support ,
--- NOTE | 2019-05-28 06:47 | ED.VIS.GEN ---
History of Present Illness Chief Complaint: Abd Pain Narrative: Patient is a pleasant 74-year-old male who presents with abdominal pain. He woke this morning about 5 AM with sharp severe epigastric abdominal pain. He states this was 9 out of 10. He took an antacid and Zofran. On his way here to the emergency department symptoms began to improve and there nearly completely resolved at this time. He complains of mild epigastric discomfort which he would now rate is a 1 out of 10. No history of prior similar symptoms. He states he did have a large hard bowel movement this morning. There was a small amount of bright red blood when he wiped for the first time. He states when he wiped a second time there was no further blood. No prior history of any bleeding. He thinks this may be due to a hemorrhoid. No melena. He denies fevers nausea vomiting diarrhea. He has had a prior cholecystectomy, no other abdominal surgeries. He does have a history of lymphoma and is undergoing chemotherapy with the last treatment at the beginning of this month. Past Medical History - Allergies and Home Meds Allergies/Adverse Reactions: Allergies No Known Allergies Allergy (Verified 05/28/19 06:33) Primary Care Physician: Jeet Lugo MD [Primary Care Provider] - Past Medical History: - - Lymphoma, hypertension, diabetes Surgical History: cholecystectomy Smoking Status: Never smoker Review of Systems All systems negative except as indicated General: Denies: Fever Cardiovascular: Denies: Chest pain Respiratory: Denies: Dyspnea Gastrointestinal: Reports: Abdominal pain, Constipation, Hematochezia. Denies: Nausea, Vomiting, Diarrhea Physical Exam Vital Signs/Narrative: Vital Signs Temp Pulse Resp BP Pulse Ox 05/28/19 06:27 98.3 F 64 18 181/73 H 97 General: Well nourished, Well developed Head: Normocephalic Eyes: EOMI ENT: Moist mucous membranes Cardiovascular: Regular rate, Regular rhythm Respiratory: No distress, CTA bilaterally Abdomen: Soft, Nontender, Nondistended Rectal: Nontender, - - No fissure, no external hemorrhoid, scant bright red blood on digital rectal exam Extremities: Nontender Skin: Normal color Neurological: Alert Diagnostic/Tx/Re-eval - Medical Decision Making Although patient's symptoms have markedly improved and nearly resolved I do feel further work-up indicated given his age, comorbidities, cancer history. I have ordered CBC, CMP, lipase, CT of the abdomen and pelvis. Patient will be signed out to the oncoming physician to follow-up on these results and reevaluate. ED Disposition - Plan for ED Patient: Diagnosis: Abdominal pain, Lymphoma, Hematochezia Referrals: Jeet Lugo MD [Primary Care Provider] -
[2019-05-28 07:16] LABS: Hematocrit 30.8 % (40-54); Hemoglobin 10.2 g/dL (13.0-16.5); Mean Corp Hgb Conc 33.1 g/dL (32-36); Mean Corpuscular Hgb 26.3 pg (27.0-32.0); Mean Corpuscular Volume 79.4 fL (80-94); Mean Platelet Vol. 10.7 fl (6.2-12.0); POSITIVE COUNT YES; POSITIVE DIFFERENTIAL YES; POSITIVE MORPHOLOGY YES; Platelet Count 106 K/mm3 (150-450); RBC Distribution Width SD 44.6 fl (35.1-43.9); Red Blood Count 3.88 M/mm3 (4.6-6.2); White Blood Count 13.3 K/mm3 (4.4-11.0)
[2019-05-28 07:18] LABS: Differential Indicated MANUAL DIFF
[2019-05-28 07:21] LABS: Prothrombin Time (Protime)PT. 12.8 SECONDS (11.7-14.9)
[2019-05-28 07:31] LABS: ALB/GLOB Ratio 0.9 RATIO (0.9-2.4); AST(SGOT) 222 U/L (15-37); Alanine Aminotransfer ALT/SGPT 146 U/L (16-61); Alkaline Phosphatase 180 U/L (45-117); Anion Gap 8 (5-15); BUN 26 mg/dL (7-18); BUN/Creat Ratio 23.4 RATIO (10-20); Calcium,Total 8.7 mg/dL (8.5-10.1); Chloride 107 mmol/L (98-107); Creatinine, Serum 1.11 mg/dL (0.70-1.30); EST Glomerular Filtration Rate 69 mL/min (>60); Est Glom Filt Rate - Afr Amer 84 mL/min (>60); Estimated Creatinine Clearance 60.16 ml/min; Globulin 3.2 g/dL (2.2-4.2); Glucose 217 mg/dL (74-106); Lipase 208 U/L (73-393); Protein, Total 6.2 g/dL (6.4-8.2); Sodium Level 140 mmol/L (136-145)
[2019-05-28 07:39] LABS: Lymphocyte 2 % (19-41); Monocyte 5 % (0-10); Myelocyte 4 (0-0); Neutrophil-Band 1 % (0-5); Neutrophil-Segmented 88 % (47-70); Platelet Estimate SLT DEC (ADEQ); Red Cell Morphology NORM C+C NORMAL (NORM C&C); Total Cells Counted 100 (MANUAL DIFF)
[2019-05-28 07:40] LABS: Absolute Neutrophil Count 11.8 X10^3/uL (2.0-7.7)
[2019-05-28 07:41] LABS: Absolute Lymphocyte Count 0.27 X10^3/uL (0.83-4.51)
--- NOTE | 2019-05-28 09:51 | ED.DEP ---
ED Disposition - Plan for ED Patient: Disposition: Home or Assisted Living Diagnosis: Abdominal pain, Lymphoma, Hematochezia Instructions: RECTAL BLEED, Stable, Duodenitis Prescriptions: Famotidine [Pepcid] 20 mg PO BID #28 tab Prescription Printed Referrals: All Domínguez DO [STAFF PHYSICIAN] - Keep Gal appointment
[2019-05-28 10:10] VITALS: BP 172/87; PULSE 66; RESP 17; O2SAT 98
[2019-05-30 12:24] LABS: Pathologist Review Reviewed
== END 2019-05-28 10:12 | disposition home or self-care (01) ==
PROVIDERS: Emergency Medicine; Emergency Provider Emergency Medicine; Family Provider Internal Medicine; PCP Internal Medicine
DX: K29.80 Duodenitis without bleeding (principal); K62.5 Hemorrhage of anus and rectum; R10.13 Epigastric pain; I10 Essential (primary) hypertension; E11.9 Type 2 diabetes mellitus without complications; C85.10 Unspecified B-cell lymphoma, unspecified site; Z90.49 Acquired absence of other specified parts of digestive tract; Z79.84 Long term (current) use of oral hypoglycemic drugs; Z79.899 Other long term (current) drug therapy
CPT/HCPCS: 74177; 80053; 83690; 85025; 85610; 86850; 86900; 86901; 99282; Q9967; A4216

== ENCOUNTER → 2019-07-11 07:51 | Outpatient (CLI) | payer MEDICARE, OTHER, SELFPAY ==
--- NOTE | 2019-07-11 08:30 | PET_ITS ---
EXAMINATION: FDG PET/CT INDICATIONS: A 74-year-old male with history of lymphoma presenting for restaging examination. COMPARISON EXAMINATION: Previous FDG PET study dated 04/04/19, CT of the abdomen and pelvis report dated 05/28/19 TECHNIQUE: Following the intravenous administration of 13.3 mCi of F-18 deoxyglucose via the left antecubital fossa, multiplanar image acquisitions of the neck, chest, abdomen and pelvis to level of mid thigh, obtained at one hour post radiopharmaceutical administration contemporaneously interpreted with the current CT of the neck, chest, abdomen and pelvis to level of mid thigh, dated 07/11/19 via coregistration and previous FDG PET study dated 04/04/19, CT of the abdomen and pelvis report dated 05/28/19 reveal: SERUM GLUCOSE LEVEL: 118 mg/dl. HEIGHT: 69 inches. WEIGHT: 192 lbs. FINDINGS: 1. There is no quantitative scintigraphic evidence of abnormal increased glucose metabolism on meticulous inspection of whole body acquisitions to include all three axis reconstructions. 2. Normal physiologic distribution of the radiopharmaceutical is apparent in the hepatic and splenic parenchyma, both renal units, bladder and visualized intestinal tract. The visualized portion of the cerebral cortex demonstrate symmetric and preserved glucose metabolism. Diffuse radiopharmaceutical concentration is noted in all four quadrants of the abdomen and pelvis. The previously identified hypermetabolic foci noted in the bilateral neck, right supraclavicular region, left anterior neck, right-left submental lymph node distributions, the mediastinum, as well as abdominal retroperitoneum and mesentery and right inguinal lymph node distributions are not apparent on the current examination. There is homogenous enhanced glucose concentration evidenced in the visualized appendicular and axial skeletal structures. PET/PET/CT Tumor Base -Thigh Subs IMPRESSION: 1. NEGATIVE EXAMINATION. There is no definitive quantitative scintigraphic evidence of recurrent/viable neoplasm. 2. There is interim metabolic resolution of all prior defined hypermetabolic foci. 3. Homogeneous increased radiopharmaceutical concentration noted in the visualized appendicular and axial skeletal structures is commensurate with the hematopoietic response to chemotherapeutic intervention. (Xiomara et al, Journal of Clinical Oncology 16:173, 1998). 4. Overall, compared to the prior FDG PET study dated 04/04/19, there is current absence of defined viable neoplastic disease with an interval quantitative complete metabolic response relating to all previously defined hypermetabolic abnormalities. Electronic Signature Kee Joe D.O. Electronically Signed: Kee Joe DO at 22:55 EDT Tel , Service support ,
== END ==
PROVIDERS: Family Provider Internal Medicine; PCP Internal Medicine; Referring Provider Internal Medicine Hematology & Oncology; Visit Provider Internal Medicine Hematology & Oncology
DX: C83.38 Diffuse large B-cell lymphoma, lymph nodes of multiple sites (principal)
CPT/HCPCS: 78815; A9552

== ENCOUNTER → 2019-08-23 07:50 | Outpatient (CLI) | payer MEDICARE, OTHER, SELFPAY ==
[2019-08-23 08:19] VITALS: BP 112/58; PULSE 73; RESP 16; TEMP 36.3; O2SAT 98; BMI 27.0
[2019-08-23 08:47] VITALS: BP 113/60; PULSE 72; RESP 16; TEMP 36.8
[2019-08-23 09:50] VITALS: BP 119/58; PULSE 70; RESP 16; TEMP 36.2; O2SAT 99
[2019-08-23 10:20] VITALS: BP 128/66; PULSE 72; RESP 16; TEMP 36.7; O2SAT 99
== END ==
PROVIDERS: Family Provider Internal Medicine; PCP Internal Medicine; Referring Provider Internal Medicine Hematology & Oncology; Visit Provider Internal Medicine Hematology & Oncology
DX: D64.9 Anemia, unspecified (principal)
CPT/HCPCS: 36430; 86850; 86900; 86901; 86920; 86922; J7040; P9016; A4216